=== PATIENT | female | born 1995 ===

== ENCOUNTER 2023-06-11 20:09 | Inpatient (IN) | payer MEDICAID ==
[~2023-06-11] VITALS: Ht 167.6 cm; Wt 76.9 kg
[2023-06-11] MEDS ORDERED: HALOPERIDOL 5 MG TABLET PO PRN (20:45)
[2023-06-12 00:57] VITALS: BP 119/63; PULSE 65; RESP 18; TEMP 98.6; O2SAT 98
[2023-06-12] MEDS ORDERED: PNEUMOCOCCAL VACCINE POLYVALENT 0.5 ML SYRINGE [PPSV23] IM. ONE (02:15)
[2023-06-12 08:14] VITALS: BP 118/79; PULSE 83; RESP 16; TEMP 98.2; O2SAT 98
[2023-06-12] MEDS ORDERED: GuaiFENesin/D-METHORPHAN [SUGAR-FREE] 200-20MG/10 ML SYRUP UDCUP PO PRN (13:30)
[2023-06-12] MEDS ORDERED: CloNIDine HCL 0.1 MG TABLET PO PRN (13:30)
[2023-06-12] MEDS ORDERED: ONDANSETRON HCL 4 MG TABLET PO PRN (13:30)
[2023-06-12] MEDS ORDERED: LOPERAMIDE HCL 2 MG CAPSULE PO PRN (13:30)
[2023-06-12] MEDS ORDERED: ALBUTEROL SULFATE HFA 90 MCG/PUFF 8 GM INHALER IH PRN (13:30)
[2023-06-12] MEDS ORDERED: MAG HYDROX/ALUMINUM HYD/SIMETH ES 30 ML SUSPENSION UDCUP PO PRN (13:30)
[2023-06-12] MEDS ORDERED: DOCUSATE SODIUM 100 MG CAPSULE PO PRN (13:30)
[2023-06-12] MEDS ORDERED: PETROLATUM,WHITE 28 GM JELLY TP PRN (13:30)
[2023-06-12] MEDS ORDERED: MAGNESIUM HYDROXIDE SUSPENSION 30 ML UDCUP PO PRN (13:30)
[2023-06-12] MEDS ORDERED: NICOTINE 14 MG/24 HOUR PATCH TD PRN (13:30)
[2023-06-12] MEDS: DIVALPROEX SODIUM 500 MG DR TABLET PO SCH (16:24)
[2023-06-12] MEDS: OLANZapine 10 MG TABLET PO SCH (16:26)
[2023-06-12 20:47] VITALS: BP 135/83; PULSE 74; RESP 19; TEMP 96.5; O2SAT 100
[2023-06-13 08:12] VITALS: BP 130/78; PULSE 99; RESP 18; TEMP 98; O2SAT 100
[2023-06-13 17:23] VITALS: BP 136/79; PULSE 89; RESP 18
[2023-06-13] MEDS: IBUPROFEN 400 MG TABLET PO PRN (17:23)
[2023-06-13 18:23] VITALS: RESP 17
[2023-06-13] MEDS: ACETAMINOPHEN 325 MG TABLET PO PRN (20:23)
[2023-06-13] MEDS: LORazepam 2 MG TABLET PO PRN (20:23)
[2023-06-13 20:56] VITALS: BP 130/75; PULSE 85; RESP 16; TEMP 97.3; O2SAT 100
[2023-06-13] MEDS: ZOLPIDEM TARTRATE 10 MG TABLET PO PRN (21:12)
[2023-06-14 08:16] VITALS: BP 109/69; PULSE 79; RESP 16; TEMP 98; O2SAT 100
[2023-06-14 08:33] LABS: APPEARANCE,URINE CLEAR (CLEAR); BILIRUBIN,URINE NEGATIVE (NEGATIVE); COLOR,URINE LIGHT YELLOW (YELLOW); GLUCOSE, URINE (UA) NEGATIVE (NEGATIVE); KETONES,URINE NEGATIVE (NEGATIVE); LEUKOCYTE ESTERASE ,URINE NEGATIVE (NEGATIVE); NITRATE,URINE NEGATIVE (NEGATIVE); OCCULT BLOOD,URINE NEGATIVE (NEGATIVE); PH,URINE 7.5 (5.0-8.0); PH,URINE DRUG SCREEN 7.5 (5.0-8.0); PROTEIN,URINE NEGATIVE (NEGATIVE); SPECIFIC GRAVITIY, URINE 1.017 (1.003-1.030); UROBILINOGEN,URINE <=1.0 mg/dL (<=1.0)
[2023-06-14 08:39] LABS: HEMOGLOBIN A1C 4.9 % (3.8-5.6)
[2023-06-14 08:41] LABS: ALCOHOL, URINE DRUG SCREEN NEGATIVE (NEGATIVE); AMPHET/METH SCREEN,URINE NEGATIVE (NEGATIVE); BARBITURATE SCREEN, URINE NEGATIVE (NEGATIVE); BENZODIAZEPINES SCREEN,URINE NEGATIVE (NEGATIVE); CANNABINOID SCREEN,URINE NEGATIVE (NEGATIVE); COCAINE SCREEN,URINE NEGATIVE (NEGATIVE); METHADONE SCREEN, URINE NEGATIVE (NEGATIVE); OPIATE SCREEN,URINE NEGATIVE (NEGATIVE); PHENCYCLIDINE SCREEN,URINE NEGATIVE (NEGATIVE)
[2023-06-14 08:51] LABS: CHOL/HDL RATIO 2.8 (3.9-5.7); THYROID STIMULATING HORMONE 2.9 uIU/mL (0.36-3.74)
[2023-06-14 17:07] VITALS: BP 111/70; PULSE 98; RESP 18; TEMP 97.8; O2SAT 99
[2023-06-14 18:07] VITALS: RESP 16
[2023-06-14 20:30] VITALS: BP 102/67; PULSE 84; RESP 17; TEMP 97.9; O2SAT 99
[2023-06-15 08:19] VITALS: BP 110/65; PULSE 90; RESP 17; TEMP 98.3; O2SAT 100
[2023-06-15 21:15] VITALS: BP 118/72; PULSE 89; RESP 16; TEMP 98.4; O2SAT 98
[2023-06-16 08:02] LABS: BASOPHILS % (AUTO) 0.8 % (0.0-2.0); EOSINOPHILS % (AUTO) 10.9 % (1.0-6.0); HEMATOCRIT 41.9 % (36-46); LYMPHOCYTES # (AUTO) 1.1 K/uL (1.0-4.8); LYMPHOCYTES % (AUTO) 15.3 % (22.0-44.0); MEAN CORPUSCULAR HEMOGLOBIN 29.3 pg (26.0-34.0); MEAN CORPUSCULAR HGB CONC 33.3 G/dL (31.0-37.0); MEAN CORPUSCULAR VOLUME 88 fL (80-100); MONOCYTES # (AUTO) 0.6 K/uL (0.1-1.0); NEUTROPHILS # (AUTO) 4.6 K/uL (1.8-7.7); PLATELET COUNT (AUTO) 239 K/uL (150-450); RED BLOOD CELL COUNT(AUTO) 4.77 MIL/uL (4.00-5.20); RED CELL DISTRIBUTION WIDTH 14.3 % (11.5-14.5); WHITE BLOOD COUNT (AUTO) 7.1 K/uL (4.5-11.0)
[2023-06-16 08:16] LABS: ANION GAP 6 mmol/L (8-16); CALCIUM, TOTAL 8.3 mg/dL (8.8-10.5); CARBON DIOXIDE 27 mmol/L (22-29); CHLORIDE 105 mmol/L (98-107); CREATININE 0.55 mg/dL (0.60-1.30); GLOMERULAR FILTR. RATE CALC > 60 mL/min (>60); GLUCOSE,RANDOM 105 mg/dL (70-110); POTASSIUM 4.8 mmol/L (3.5-5.1); SODIUM SERUM 138 mmol/L (136-145); UREA NITROGEN, BLOOD 13 mg/dL (7-18)
[2023-06-16 08:33] VITALS: BP 100/66; PULSE 82; RESP 18; TEMP 98.2; O2SAT 100
== END 2023-06-16 15:50 | disposition left against medical advice (07) | DRG 751 ==
LOC: B3A 22:35
PROVIDERS: ADMIT Psychiatry & Neurology Child & Adolescent Psychiatry; ATTEND Psychiatry & Neurology Child & Adolescent Psychiatry
PROC: GZ52ZZZ Individual Psychotherapy, Cognitive (ICD-10-PCS; principal; 2023-06-12)
DX: F29 Unspecified psychosis not due to a substance or known physiological condition (principal); F41.9 Anxiety disorder, unspecified; G47.00 Insomnia, unspecified; Z53.29 Procedure and treatment not carried out because of patient's decision for other reasons
CPT/HCPCS: 80048; 80061; 80164; 80307; 81003; 83036; 84443; 84703; 85025